=== PATIENT | male | born 1950 | race Asian ===

== ENCOUNTER 2019-02-14 17:20 | Emergency (ER) | payer OTHER ==
[~2019-02-14] VITALS: Ht 165.1 cm; Wt 50.3 kg
[2019-02-14 17:26] VITALS: Ht 165.1 cm; Wt 50.3 kg
[2019-02-14 18:56] VITALS: BP 134/77
== END 2019-02-14 18:56 | disposition home or self-care (01) ==
LOC: ED 17:20
DX: S51.801A Unspecified open wound of right forearm, initial encounter (principal); I10 Essential (primary) hypertension; E11.9 Type 2 diabetes mellitus without complications; Z88.8 Allergy status to other drugs, medicaments and biological substances; W45.8XXA Other foreign body or object entering through skin, initial encounter; Y93.02 Activity, running; Y92.89 Other specified places as the place of occurrence of the external cause; Y99.8 Other external cause status
CPT/HCPCS: 90715